=== PATIENT | female | born 1970 | race Caucasian/White ===

== ENCOUNTER → 2023-04-08 08:09 | Outpatient (REF) | payer BC, SELFPAY | LOC: HWRAD 08:09 | PROVIDERS: ATTENDING PHYSICIAN Surgery; FAMILY PHYSICIAN Family Medicine | DX: R91.1 Solitary pulmonary nodule (principal); K80.20 Calculus of gallbladder without cholecystitis without obstruction | CPT/HCPCS: 71250 ==

== ENCOUNTER → 2023-08-05 09:52 | Outpatient (REF) | payer BC, SELFPAY | LOC: DHSLP 09:52 | PROVIDERS: ATTENDING PHYSICIAN Family Medicine | DX: G47.33 Obstructive sleep apnea (adult) (pediatric) (principal) | CPT/HCPCS: 95800 ==

== ENCOUNTER → 2023-08-28 07:49 | Outpatient (REF) | payer BC, SELFPAY | LOC: RAD 07:49 | PROVIDERS: ATTENDING PHYSICIAN Surgery | DX: R14.0 Abdominal distension (gaseous) (principal); R10.11 Right upper quadrant pain | CPT/HCPCS: 78226; A9537 ==

== ENCOUNTER 2024-01-02 06:16 | Day surgery (SDC) | payer BC, SELFPAY | END 2024-01-02 11:19 | disposition home or self-care (01) | LOC: GI 06:16 | PROVIDERS: ATTENDING PHYSICIAN Specialist | DX: R10.11 Right upper quadrant pain (principal); R14.0 Abdominal distension (gaseous); R68.81 Early satiety; K31.89 Other diseases of stomach and duodenum; K29.50 Unspecified chronic gastritis without bleeding | CPT/HCPCS: 43239; 88305; 88342 ==

== ENCOUNTER → 2024-01-05 10:40 | Outpatient (REF) | payer BC, SELFPAY | LOC: WDC 10:40 | PROVIDERS: ATTENDING PHYSICIAN Obstetrics & Gynecology; FAMILY PHYSICIAN Family Medicine | DX: Z12.31 Encounter for screening mammogram for malignant neoplasm of breast (principal) | CPT/HCPCS: 77063; 77067 ==

== ENCOUNTER → 2024-02-20 09:50 | Outpatient (REF) | payer BC, SELFPAY | LOC: RAD 09:50 | PROVIDERS: ATTENDING PHYSICIAN Internal Medicine Pulmonary Disease; FAMILY PHYSICIAN Family Medicine | DX: R06.02 Shortness of breath (principal) | CPT/HCPCS: 71046 ==